=== PATIENT | male | born 1980 | race Two or more races ===

== ENCOUNTER 2025-05-19 21:23 | Emergency (ER) | payer BC, SELFPAY ==
[2025-05-19 21:31] VITALS: BP 188/104
--- NOTE | 2025-05-20 01:28 | ED.GENMED ---
History of Present Illness
General
Chief Complaint: Musculo-Skeletal Complaint
Source: patient
Time Seen by Provider: 05/20/25 01:24
History of Present Illness
History of Present Illness:
44-year-old male presents emergency department after falling on ice, landing on an outstretched hand. He is complaining of pain at the dorsal radial aspect of his right wrist ever since. He denies other injury. He denies head strike, loss
conscious, headache, dizziness, neck pain, numbness, tingling, nausea, vomiting, change in vision, change in speech, or other complaints.
Past History
Past History
ED Past Medical History: None
ED Past Surgical History: None
Social History
Tobacco: Non-smoker
Alcohol: None
Drug: None
Personal:
Living: with family
Phy Exam
Physical Exam
Physical Exam:
GENERAL: Alert , in no apparent distress
EYE: pupils equal and reactive, no photophobia
NECK: Supple, no significant adenopathy, no midline tenderness.
ENT: o/p clr, mmm.
CARDIAC: Regular rate and rhythm .
LUNGS: Clear breath sounds bilaterally, no acute respiratory distress, no wheezes/rales/rhonchi
NEUROLOGICAL: Alert and oriented, no focal neuro deficits
SKIN: Warm and dry, skin intact.
MUSCULOSKELETAL: there is sts and ttp noted at dorsal aspect distal radius, no deformity, FROM, sens itnact, motor intact, no break in skin, well perfused.
PSYCH: Normal and appropriate interaction.
Course
Orders/Labs/Results
Orders:
Orders
05/20/25 00:10
CR Wrist - Right Min 3 Views Urgent
Reason For Exam: injury
05/20/25 01:48
Sling Right-Treatment ONCE
Vital Signs
Initial and Last Documented VS:
Initial Vital Signs
Temp Pulse Resp BP Pulse Ox
98.8 F 93 16 188/104 98
05/19/25 21:31 05/19/25 21:31 05/19/25 21:31 05/19/25 21:31 05/19/25 21:31
Last Documented Vital Signs
Temp Pulse Resp BP Pulse Ox
98.8 F 93 16 188/104 98
05/19/25 21:31 05/19/25 21:31 05/19/25 21:31 05/19/25 21:31 05/20/25 01:33
*Pulse Oximetry
SaO2: 98
Oxygen Mode of Delivery: Room air
Patient hypoxic: no
*Critical Care Note
Total Time (30-74mins, 75-104mins- exclusive of procedures): Not Applicable
Update Note
Update Note:
Patient presents to the Emergency Department with wrist pain after a fall____
Number and Complexity of Problems Addressed at the Encounter
� Chronic conditions affecting care:
� Acute Exacerbation and/or Progression of Chronic Illness:
� Differential Diagnosis includes: But not limited to sprain, fracture, hematoma, etc. etc.
Amount and/or Complexity of Data to be Reviewed and Analyzed
� I performed an independent evaluation of and my interpretation is:
EKG:
CT:
Xrays: Questionable subtle distal radius fracture
Laboratory Studies:
Other:
� Review of other/old records reveals:
� Clinical information was obtained by an independent historian:
� Prescriptions/Medications Considered but not given:
� Further testing considered but not performed:
Risk of Complications and/or Morbidity or Mortality of Patient Management
� Social determinants of health affecting care:
� Discussion with other providers (PCP, Hospitalists, Consultants, etc):
� Escalation of care including admission/observation vs risk of discharge considered: Given questionable fracture, patient will be placed in a sugar-tong splint and instructed to follow-up with orthopedics pending formal read.
149AM Splint applied by me and tech...well perfused, nl cap refill, no exposed edges. Pt aware of import of f/u and reasons to rted. I also showed him th xray.
ED Attending Note
-
Portions of this chart may have been created with voice recognition software.� Occasional wrong word or��sound alike� substitutions may have occurred due to the inherent limitations of voice recognition software.
Discharge Plan
Departure
Patient with high blood pressure during this ER visit?: Yes
Condition: Good
Discharge Problem:
Fracture of wrist
Instructions: Splint Care, Wrist fracture, BLOOD PRESSURE, Wrist Fracture
Referrals:
Jun Mock MD [Active, Orthopedics] - Follow up in 2-3 days
Activity Restrictions/Additional Instructions:
IF YOU DEVELOP INCREASING/NEW/PERSISTENT PAIN, ANY NUMBNESS, SWELLING, OR OTHER WORRISOME SIGNS, GO TO THE ER IMMEDIATELY!
Interventions
Interventions:
*General Assessment Last Done: 05/19/25 21:31
*Risk Screen - Suicide (C-SSRS) Last Done: 05/19/25 21:31
Discharge Date and Time
Print Language: YAKUT
== END 2025-05-20 04:10 | disposition home or self-care (01) ==
LOC: EMR 21:23
PROVIDERS: EMERGENCY PHYSICIAN Emergency Medicine; FAMILY PHYSICIAN Internal Medicine
DX: S52.571A Other intraarticular fracture of lower end of right radius, initial encounter for closed fracture (principal); W00.0XXA Fall on same level due to ice and snow, initial encounter
CPT/HCPCS: 99283; 29125; 73110